=== PATIENT | male | born 1965 | race Hispanic/Latino ===

== ENCOUNTER 2023-10-05 02:30 | Emergency (ER) | payer BC ==
[~2023-10-05] VITALS: Ht 177.8 cm; Wt 106.1 kg
[2023-10-05 03:05] LABS: APPEARANCE,URINE CLEAR (CLEAR); BILIRUBIN,URINE NEGATIVE (NEGATIVE); COLOR,URINE LIGHT-YELLOW (YELLOW); GLUCOSE, URINE (UA) NEGATIVE (NEGATIVE); KETONES,URINE NEGATIVE (NEGATIVE); LEUKOCYTE ESTERASE ,URINE NEGATIVE Leu/uL (NEGATIVE); NITRATE,URINE NEGATIVE (NEGATIVE); OCCULT BLOOD,URINE SMALL (NEGATIVE); PROTEIN,URINE NEGATIVE (NEGATIVE); UROBILINOGEN,URINE 0.2 mg/dL (0.2-1.0)
[2023-10-05 03:06] LABS: ADD UA MICROSCOPIC YES
[2023-10-05 03:21] LABS: MUCUS,URINE RARE LPF (None Seen)
[2023-10-05 03:49] LABS: BASOPHILS # (AUTO) 0.05 K/uL (0.00-0.20); BASOPHILS % (AUTO) 0.7 % (0.0-5.0); EOSINOPHILS # (AUTO) 0.14 K/uL (0.00-0.70); EOSINOPHILS % (AUTO) 1.8 % (0.0-8.0); HEMATOCRIT 40.7 % (42-54); IMMATURE GRANULOCYTE ABSOLUTE 0.03 K/uL (0-1); LYMPHOCYTES # (AUTO) 0.9 K/uL (1.0-4.8); LYMPHOCYTES % (AUTO) 12.1 % (21.0-51.0); MEAN CORPUSCULAR HEMOGLOBIN 31.1 pg (27.0-33.0); MEAN CORPUSCULAR HGB CONC 34.6 g/dL (32.0-36.0); MEAN CORPUSCULAR VOLUME 89.8 fL (79-99); MONOCYTES # (AUTO) 0.7 K/uL (0.1-1.0); MONOCYTES % (AUTO) 9.2 % (3.0-13.0); NEUTROPHILS # (AUTO) 5.8 K/uL (1.8-7.7); NEUTROPHILS % (AUTO) 75.8 % (40.0-77.0); PLATELET COUNT (AUTO) 204 K/uL (130-400); RED BLOOD CELL COUNT(AUTO) 4.53 MIL/uL (4.50-6.20); RED CELL DISTRIBUTION WIDTH 12.3 % (11.0-15.5); WHITE BLOOD COUNT (AUTO) 7.7 K/uL (4.8-10.8)
[2023-10-05] MEDS: MORPHINE 4 MG SYG IVP ONE (03:53)
[2023-10-05] MEDS: ONDANSETRON 4MG INJ IVP ONE (03:53)
[2023-10-05 03:58] LABS: CREATININE 1.3 mg/dL (0.5-1.5); POTASSIUM 3.6 mmol/L (3.5-5.1)
[2023-10-05 04:02] LABS: ALBUMIN 3.8 g/dL (3.5-5.0); BILIRUBIN,TOTAL 0.4 mg/dL (0.2-1.0)
[2023-10-05] MEDS ORDERED: TAMS-1 PO (07:11)
[2023-10-05] MEDS ORDERED: CEFU500T67 PO (07:11)
[2023-10-05] MEDS ORDERED: KETO10 PO (07:11)
[2023-10-05 07:22] VITALS: BP 134/82; PULSE 90; RESP 18; O2SAT 100
== END 2023-10-05 07:34 | disposition home or self-care (01) ==
LOC: EDH 02:30
DX: N20.0 Calculus of kidney (principal); Z79.899 Other long term (current) drug therapy; Z98.890 Other specified postprocedural states
CPT/HCPCS: 99284; 74176; 96374; 96375; 80053; 85025; 81001; 36415; J2405; J2270

== ENCOUNTER → 2024-05-04 | Outpatient (CLI) | payer BC ==
[~2024-05-04] MED LIST: CEFU500T67 PO; KETO10 PO; TAMS-1 PO
== END | disposition home or self-care (01) ==
LOC: RAH 14:30
PROVIDERS: ATTEND Student in an Organized Health Care Education/Training Program
DX: M75.101 Unspecified rotator cuff tear or rupture of right shoulder, not specified as traumatic (principal); M75.41 Impingement syndrome of right shoulder; M25.511 Pain in right shoulder
CPT/HCPCS: 73221